=== PATIENT | female | born 1955 | race Caucasian/White ===

== ENCOUNTER 2016-09-29 15:57 | Emergency (ER) | payer BC ==
[2016-09-29 16:04] VITALS: BP 115/81
--- NOTE | 2016-09-29 16:24 | UC ---
UC General HPI - HPI Summary HPI Summary: Patient did have a tick removed aobut 10 days ago. now she has a bullseye rash on her trunk, joint pain ,fever, DIETRICH and fatigue. - History of Current Complaint Chief Complaint: UCGeneralIllness Stated Complaint: STIFF NECK, FEVER, CHILLS Time Seen by Provider: 09/29/16 16:12 Hx Obtained From: Patient Onset/Duration: Sudden Onset, Lasting Days Timing: Constant Onset Severity: Moderate Current Severity: Moderate - Allergy/Home Medications Allergies/Adverse Reactions: Allergies Allergy/AdvReac Type Severity Reaction Status Date / Time No Known Allergies Allergy Verified 09/29/16 16:04 Home Medications: Home Medications Ogemkbf-Etvnlkbgixuzf-Luoxjnsn [Excedrin Migraine] 2 tab PO PRN 09/29/16 [ History] [place]-3 Fatty Acids [Fish Oil] 09/29/16 [History] Pseudoephedrine TAB* [Sudafed TAB*] 2 tab PO PRN 09/29/16 [History] PMH/Surg Hx/FS Hx/Imm Hx Previously Healthy: Yes - Surgical History Surgical History: Yes Surgery Procedure, Year, and Place: LEFT CARPAL TUNNEL - Family History Known Family History: Negative: Cardiac Disease, Hypertension - Social History Alcohol Use: Weekly Alcohol Amount: 1 GLASS WINE/WEEK Substance Use Type: None Smoking Status (MU): Never Smoked Tobacco Review of Systems Constitutional: Fever, Fatigue Skin: Rash Eyes: Negative ENT: Negative Respiratory: Negative Cardiovascular: Negative Gastrointestinal: Negative Genitourinary: Negative Motor: Negative Neurovascular: Negative Musculoskeletal: Arthralgia Neurological: Negative Psychological: Negative All Other Systems Reviewed And Are Negative: Yes Physical Exam Triage Information Reviewed: Yes Appearance: Well-Nourished, Ill-Appearing, Pain Distress Vital Signs: Initial Vital Signs Temp 99.5 F 09/29/16 15:59 Pulse 64 09/29/16 15:59 Resp 16 09/29/16 15:59 BP 115/81 09/29/16 15:59 Pulse Ox 99 09/29/16 15:59 Vital Signs Reviewed: Yes Eye Exam: Normal ENT Exam: Normal ENT: Positive: Pharynx normal, TMs normal Dental Exam: Normal Neck exam: Normal Respiratory Exam: Normal Respiratory: Positive: Chest non-tender, Lungs clear, Normal breath sounds Cardiovascular Exam: Normal Cardiovascular: Positive: RRR, No Murmur, Pulses Normal Abdominal Exam: Normal Abdomen Description: Positive: Nontender, No Organomegaly, Soft Bowel Sounds: Positive: Present Musculoskeletal: Positive: Strength Intact, ROM Intact, No Edema Neurological Exam: Normal Neurological: Positive: Alert, Muscle Tone Normal Psychological Exam: Normal Skin: Positive: rashes - bullseye on right trunk Course/Dx - Course Course Of Treatment: hx obtained, exam performed ,meds reviewed, treated for lyme disease - Differential Dx - Multi-Symptom Provider Diagnoses: lyme disease Discharge - Discharge Plan Condition: Stable Disposition: HOME Prescriptions: DOXYcycline CAP(*) [DOXYcycline 100MG CAP(*)] 100 mg PO BID #42 cap Patient Education Materials: Lyme Disease (ED) Additional Instructions: 1. Take the doxycycline for the 3 week course, REMEMBER TO WEAR SUNSCREEN OR CLOTHING TO COVER SKIN YOU ARE MORE SUSCEPTIBLE TO PATEL WITH THE MEDICATION 2. Follow up as needed, if you r symptoms are not improving over the next few days.
== END 2016-09-29 16:44 | disposition home or self-care (01) ==
LOC: UCEAST 15:57
DX: A69.20 Lyme disease, unspecified (principal)
CPT/HCPCS: 99212; G0463